=== PATIENT | male | born 1990 | race Caucasian/White ===

== ENCOUNTER 2022-09-18 09:35 | Emergency (ER) | payer OTHER ==
[~2022-09-18] VITALS: Ht 190.5 cm; Wt 79.4 kg
[2022-09-18] MEDS ORDERED: NARCAN4 M1 (12:24)
== END 2022-09-18 13:20 | disposition home or self-care (01) ==
LOC: ER 09:35
DX: T40.411A Poisoning by fentanyl or fentanyl analogs, accidental (unintentional), initial encounter (principal)
CPT/HCPCS: 99284

== ENCOUNTER 2022-11-03 16:26 | Emergency (ER) | payer MEDICAID ==
[~2022-11-03] VITALS: Ht 190.5 cm; Wt 95.2 kg
[~2022-11-03 16:26] MED LIST: NARCAN4 M1
[2022-11-03] MEDS ORDERED: NARCAN4 M1 (19:41)
[2022-11-03 19:53] VITALS: BP 100/58
== END 2022-11-03 20:07 | disposition home or self-care (01) ==
LOC: ER 16:26
DX: T43.651A Poisoning by methamphetamines accidental (unintentional), initial encounter (principal); F11.90 Opioid use, unspecified, uncomplicated
CPT/HCPCS: 71045; 93005; 93010; 99284-25